=== PATIENT | male | born 1995 | race African-American/Black ===

== ENCOUNTER 2018-02-27 10:01 | Emergency (ER) | payer MEDICAID, SELFPAY ==
[2018-02-27 10:22] LABS: Bilirubin Negative (Negative); Blood, Urine Negative (Negative); Clarity CLEAR (Clear); Glucose, Urine (Dipstick) Negative (Negative); Leukocyte Negative (Negative); Nitrite Negative (Negative); Protein, Urine (Dipstick) Negative (Neg-Trace); Specific Gravity, Urine 1.023 (1.002-1.036); Urobilinogen 0.2 mg/dL (0.2-1.0); pH, Urine 6.5 (5.0-9.0)
[2018-02-27] MEDS ORDERED: cefTRIAXone\\ROCEPHIN 250 MG VIAL ONE (11:34)
[2018-02-27] MEDS ORDERED: Azithromycin 250 MG TAB ONE (11:34)
[2018-02-27] MEDS ORDERED: Lidocaine 1% (PF) 30 ML VIAL ONE (11:34)
== END 2018-02-27 12:14 | disposition home or self-care (01) ==
LOC: ERS 10:01
DX: R30.0 Dysuria (principal)
CPT/HCPCS: 81003; 87491; 87591; 96372; J0696; J2001

== ENCOUNTER 2018-03-10 07:59 | Emergency (ER) | payer SELFPAY ==
[2018-03-10 08:32] LABS: Bilirubin Negative (Negative); Blood, Urine Negative (Negative); Clarity TURBID (Clear); Glucose, Urine (Dipstick) Negative (Negative); Leukocyte Negative (Negative); Nitrite Negative (Negative); Protein, Urine (Dipstick) Negative (Neg-Trace); Specific Gravity, Urine 1.017 (1.002-1.036); pH, Urine 7.5 (5.0-9.0)
== END 2018-03-10 09:23 | disposition home or self-care (01) ==
LOC: ERS 07:59
DX: R30.0 Dysuria (principal); R33.9 Retention of urine, unspecified
CPT/HCPCS: 81003

== ENCOUNTER 2019-05-18 16:59 | Emergency (ER) | payer SELFPAY ==
--- NOTE | 2019-05-18 18:42 | RAD ---
PORTABLE CHEST: 05/18/19 HISTORY: Chest pain. Heart size and mediastinum are within normal limits. The lungs are clear of infiltrates. No significa nt bony findings. IMPRESSION: No active intrathoracic disease. POS: [facility]
== END 2019-05-18 19:31 | disposition home or self-care (01) ==
LOC: ERS 16:59
DX: M94.0 Chondrocostal junction syndrome [Tietze] (principal); F17.210 Nicotine dependence, cigarettes, uncomplicated
CPT/HCPCS: 71045; 93005

== ENCOUNTER 2020-01-03 18:38 | Emergency (ER) | payer SELFPAY ==
[2020-01-03] MEDS ORDERED: Acetaminophen 325 MG TAB ONE (19:10)
[2020-01-03] MEDS ORDERED: Ibuprofen 800 MG TAB ONE (19:10)
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
== END 2020-01-03 20:14 | disposition home or self-care (01) ==
LOC: ERS 18:38
DX: S16.1XXA Strain of muscle, fascia and tendon at neck level, initial encounter (principal); S39.012A Strain of muscle, fascia and tendon of lower back, initial encounter; R51 Headache; Z87.891 Personal history of nicotine dependence; V49.60XA Unspecified car occupant injured in collision with unspecified motor vehicles in traffic accident, initial encounter
CPT/HCPCS: 70450; 72100; 72125

== ENCOUNTER 2022-08-26 09:24 | Emergency (ER) | payer SELFPAY ==
[2022-08-26] MEDS ORDERED: cefTRIAXone (ROCEPHIN) 500 MG VIAL ONE (10:40)
[2022-08-26] MEDS ORDERED: Lidocaine 1% MPF 2 ML VIAL ONE (10:40)
[2022-08-26 19:16] LABS: Chlam.trachomatis by PCR,Urine Not Detected (NotDetected); GC N.gonorrhoeae PCR,UrineVOID Not Detected (NotDetected)
== END 2022-08-26 11:02 | disposition home or self-care (01) ==
LOC: ERS 09:24
DX: R36.9 Urethral discharge, unspecified (principal); Z20.2 Contact with and (suspected) exposure to infections with a predominantly sexual mode of transmission; Z87.891 Personal history of nicotine dependence
CPT/HCPCS: 87491; 87591; 96372; 99283; J0696